=== PATIENT | female | born 1960 | race Two or more races ===

== ENCOUNTER → 2023-06-30 | Outpatient (CLI) | payer MEDICAID | END | disposition home or self-care (01) | LOC: XYW 09:46 | PROVIDERS: ATTEND Internal Medicine | DX: R60.0 Localized edema (principal); I27.81 Cor pulmonale (chronic) | CPT/HCPCS: 93306 ==

== ENCOUNTER → 2024-01-19 | Outpatient (CLI) | payer MEDICAID ==
[2024-01-19 09:49] LABS: Urine Bacteria None Seen /hpf (None Seen); Urine WBC None Seen /hpf (0 - 5)
[2024-01-19 12:22] LABS: Alanine Aminotransferase 20 U/L (7-40); Albumin 4.7 g/dL (3.2-4.8); Alkaline Phosphatase 91 U/L (46-116); Anion Gap 7 (5-15); Aspartate Aminotransferase 13 U/L (13-40); BUN/Creatinine Ratio 11.4 (10.0-20.0); Bilirubin, Total 0.5 mg/dL (0.2-1.0); Blood Urea Nitrogen 10 mg/dL (9-23); Calcium 9.9 mg/dL (8.7-10.4); Carbon Dioxide 27 mmol/L (20-31); Chloride 107 mmol/L (98-107); Glucose 89 mg/dL (74-106); Potassium 4.3 mmol/L (3.5-5.1); Sodium 141 mmol/L (136-145); Total Protein 7.5 g/dL (5.7-8.2)
[2024-01-19 12:31] LABS: Urine Blood Negative /uL (Negative); Urine Clarity Clear (Clear); Urine Color Colorless (Yellow); Urine Protein, UAD Negative (Negative); Urine Specific Gravity 1.007 (1.001-1.035); Urine Urobilinogen Normal (Negative); Urine pH 5.5 (5.0-9.0)
[2024-01-19 12:56] LABS: Creatinine, Urine 30.57 mg/dL (30.0-125.0)
[2024-01-19 12:59] LABS: Micro Albumin < 3.0 mg/L (<30.0)
[2024-01-19 13:13] LABS: Microalb/Creat Ratio, Urine < 9.00
== END | disposition home or self-care (01) ==
LOC: LAB 09:33
PROVIDERS: ATTEND Internal Medicine
DX: J44.9 Chronic obstructive pulmonary disease, unspecified (principal); E78.5 Hyperlipidemia, unspecified; R73.03 Prediabetes
CPT/HCPCS: 36415; 80053; 81001; 82043; 82306; 82570; 83036; 84443

== ENCOUNTER → 2024-05-30 | Outpatient (CLI) | payer MEDICAID ==
[2024-05-30 09:15] LABS: Cholesterol 154 mg/dL (< 200); Triglycerides 61 mg/dL (< 150)
[2024-05-30 09:16] LABS: LDL Cholesterol 85 mg/dL (< 100)
[2024-05-30 09:58] LABS: HDL Cholesterol 61 mg/dL (40-59)
== END | disposition home or self-care (01) ==
LOC: LAB 08:10
PROVIDERS: ATTEND Internal Medicine
DX: R73.03 Prediabetes (principal); E78.5 Hyperlipidemia, unspecified
CPT/HCPCS: 36415; 80061; 82306; 83036

== ENCOUNTER 2024-09-26 07:35 | Outpatient (CLI) | payer MEDICAID ==
[2024-09-26 08:43] LABS: Alanine Aminotransferase 20 U/L (7-40); Alkaline Phosphatase 86 U/L (46-116); Anion Gap 10 (5-15); BUN/Creatinine Ratio 11.4 (10.0-20.0); Blood Urea Nitrogen 10 mg/dL (9-23); Calcium 10.3 mg/dL (8.7-10.4); Carbon Dioxide 27 mmol/L (20-31); Glucose 97 mg/dL (74-106); Potassium 4.1 mmol/L (3.5-5.1); Sodium 145 mmol/L (136-145); Total Protein 7.2 g/dL (5.7-8.2)
[2024-09-26 08:44] LABS: Creatinine, Urine 74.77 mg/dL (30.0-125.0)
[2024-09-26 08:45] LABS: Albumin 4.5 g/dL (3.2-4.8); Aspartate Aminotransferase 14 U/L (13-40); Bilirubin, Total 0.4 mg/dL (0.2-1.0); Chloride 108 mmol/L (98-107)
[2024-09-26 08:56] LABS: Micro Albumin < 3.0 mg/L (<30.0); Microalb/Creat Ratio, Urine < 4.00
== END 2024-09-26 17:00 | disposition home or self-care (01) ==
LOC: LAB 07:35
PROVIDERS: ATTEND Internal Medicine
DX: R73.03 Prediabetes (principal)
CPT/HCPCS: 36415; 80053; 82043; 82570